=== PATIENT | female | born 1935 | race Caucasian/White ===

== ENCOUNTER 2020-05-12 10:20 | Outpatient (CLI) | payer MEDICARE, BC ==
[2020-05-12] MEDS ORDERED: silver sulfadiazine cream 50gm TP ONE (11:11)
== END 2020-05-12 11:37 | disposition home or self-care (01) ==
LOC: EDSTATUS 10:20 → WOUND CARE 10:20
PROVIDERS: ATTEND Nurse Practitioner
DX: T24.211A Burn of second degree of right thigh, initial encounter (principal); L97.111 Non-pressure chronic ulcer of right thigh limited to breakdown of skin; G30.9 Alzheimer's disease, unspecified; I87.2 Venous insufficiency (chronic) (peripheral); E03.9 Hypothyroidism, unspecified; F02.80 Dementia in other diseases classified elsewhere, unspecified severity, without behavioral disturbance, psychotic disturbance, mood disturbance, and anxiety; F32.9 Major depressive disorder, single episode, unspecified; Z90.710 Acquired absence of both cervix and uterus; X08.8XXA Exposure to other specified smoke, fire and flames, initial encounter; Y92.89 Other specified places as the place of occurrence of the external cause; Y99.8 Other external cause status; Y93.89 Activity, other specified
CPT/HCPCS: G0463

== ENCOUNTER 2020-05-17 10:15 | Outpatient (CLI) | payer MEDICARE, BC ==
[2020-05-17] MEDS ORDERED: silver sulfadiazine cream 50gm TP ONE (11:03)
== END 2020-05-17 11:23 | disposition home or self-care (01) ==
LOC: WOUND CARE 10:15 → EDSTATUS 10:20 → WOUND CARE 11:23
PROVIDERS: ATTEND Nurse Practitioner
DX: T24.211D Burn of second degree of right thigh, subsequent encounter (principal); L97.111 Non-pressure chronic ulcer of right thigh limited to breakdown of skin; G30.9 Alzheimer's disease, unspecified; I87.2 Venous insufficiency (chronic) (peripheral); E03.9 Hypothyroidism, unspecified; F02.80 Dementia in other diseases classified elsewhere, unspecified severity, without behavioral disturbance, psychotic disturbance, mood disturbance, and anxiety; F32.9 Major depressive disorder, single episode, unspecified; Z90.710 Acquired absence of both cervix and uterus; X08.8XXD Exposure to other specified smoke, fire and flames, subsequent encounter
CPT/HCPCS: G0463

== ENCOUNTER 2020-05-24 10:16 | Outpatient (CLI) | payer MEDICARE, BC ==
[2020-05-24] MEDS ORDERED: LIDOcaine 2% 5ml jelly ONE (10:47)
[2020-05-24] MEDS ORDERED: silver sulfadiazine cream 50gm TP ONE (11:21)
== END 2020-05-24 11:39 | disposition home or self-care (01) ==
LOC: WOUND CARE 10:16 → EDSTATUS 10:20 → WOUND CARE 11:39
PROVIDERS: ATTEND Nurse Practitioner Family
DX: T24.211D Burn of second degree of right thigh, subsequent encounter (principal); L97.111 Non-pressure chronic ulcer of right thigh limited to breakdown of skin; G30.9 Alzheimer's disease, unspecified; I87.2 Venous insufficiency (chronic) (peripheral); E03.9 Hypothyroidism, unspecified; F02.80 Dementia in other diseases classified elsewhere, unspecified severity, without behavioral disturbance, psychotic disturbance, mood disturbance, and anxiety; F32.9 Major depressive disorder, single episode, unspecified; Z90.710 Acquired absence of both cervix and uterus; X08.8XXD Exposure to other specified smoke, fire and flames, subsequent encounter
CPT/HCPCS: G0463

== ENCOUNTER 2020-06-02 10:25 | Outpatient (CLI) | payer MEDICARE, BC | END 2020-06-02 11:17 | disposition home or self-care (01) | LOC: WOUND CARE 10:25 | PROVIDERS: ATTEND Nurse Practitioner Family | DX: T24.211D Burn of second degree of right thigh, subsequent encounter (principal); L97.111 Non-pressure chronic ulcer of right thigh limited to breakdown of skin; G30.9 Alzheimer's disease, unspecified; I87.2 Venous insufficiency (chronic) (peripheral); E03.9 Hypothyroidism, unspecified; F02.80 Dementia in other diseases classified elsewhere, unspecified severity, without behavioral disturbance, psychotic disturbance, mood disturbance, and anxiety; F32.9 Major depressive disorder, single episode, unspecified; Z90.710 Acquired absence of both cervix and uterus; X08.8XXD Exposure to other specified smoke, fire and flames, subsequent encounter | CPT/HCPCS: G0463 ==

== ENCOUNTER 2021-03-02 08:12 | Outpatient (CLI) | payer MEDICARE, BC, MEDICAID ==
[~2021-03-02] VITALS: Ht 172.7 cm; Wt 65.0 kg
[2021-03-02] VITALS (7 sets, daily range): BP systolic 91–139; BP diastolic 47–69
[2021-03-02] MEDS ORDERED: aminophylline 250mg/10ml inj. IV PRN (09:20)
[2021-03-02] MEDS ORDERED: normal saline 500ml IV soln 500 ML IV ONE (09:20)
[2021-03-02] MEDS ORDERED: regadenoson 0.4mg/5ml syringe IV ONE (09:20)
[2021-03-02] MEDS ORDERED: nitroGLYCERIN 0.4mg SUBLingual tab SL PRN (09:20)
== END 2021-03-02 23:59 | disposition home or self-care (01) ==
LOC: RAD 08:12
PROVIDERS: ATTEND Internal Medicine Cardiovascular Disease
DX: Z01.812 Encounter for preprocedural laboratory examination (principal); R94.31 Abnormal electrocardiogram [ECG] [EKG]
CPT/HCPCS: 78452; 93017; A9500; J0280; J2785; J7040